=== PATIENT | female | born 1960 | race Caucasian/White ===

== ENCOUNTER 2019-04-18 16:40 | Observation (INO) | payer OTHER ==
[2019-04-18] MEDS ORDERED: Sodium Chloride 0.9% 1,000 ML IV ONE (17:25)
--- NOTE | 2019-04-18 17:29 | EDM.PDOC ---
ED HPI GENERAL MEDICAL PROBLEM - General Chief Complaint: General Stated Complaint: Abdominal Pain Time Seen by Provider: 04/18/19 17:04 Source of Information: Reports: Patient History Limitations: Reports: No Limitations - History of Present Illness INITIAL COMMENTS - FREE TEXT/NARRATIVE: HISTORY AND PHYSICAL: History of present illness: Patient is a 58-year-old female who presents to the emergency room with complaints of right lower quadrant pain that radiates into her mid back. She states this discomfort started last evening but has progressively gotten worse. This morning she has noticed subjective fever, headache and generalized body aches. Patient denies any injury/trauma, change in vision, syncope or near syncope. Denies any chest pain, back pain, shortness of breath or cough. Denies any nausea, vomiting, diarrhea, constipation or dysuria. Has not noted any blood in urine or stool. Patient has been eating and drinking appropriately. Review of systems: As per history of present illness and below otherwise all systems reviewed and negative. Past medical history: As per history of present illness and as reviewed below otherwise noncontributory. Surgical history: As per history of present illness and as reviewed below otherwise noncontributory. Social history: See social history for further information Family history: As per history of present illness and as reviewed below otherwise noncontributory. Physical exam: General: Well-developed and well-nourished 58-year-old female. Alert and oriented. Nontoxic-appearing and in no acute distress. HEENT: Atraumatic, normocephalic, pupils equal and reactive bilaterally, negative for conjunctival pallor or scleral icterus, mucous membranes moist, TMs normal bilaterally, throat clear, neck supple, nontender, trachea midline. No drooling or trismus noted. No meningeal signs. No hot potato voice noted. Lungs: Clear to auscultation, breath sounds equal bilaterally, chest nontender. Heart: S1S2, regular rate and rhythm without overt murmur Abdomen: Soft, nondistended, right lower quadrant tenderness with rebound tenderness. Negative for masses or hepatosplenomegaly. Negative for costovertebral tenderness. Pelvis: Stable nontender. Skin: Intact, warm, dry. No lesions or rashes noted. Extremities: Atraumatic, moves all extremities per self without difficulty or deficits, negative for cords or calf pain. Neurovascular unremarkable. Neuro: Awake, alert, oriented. Cranial nerves II through XII unremarkable. Cerebellum unremarkable. Motor and sensory unremarkable throughout. Exam nonfocal. Notes: Patient does have a white count of 12.2, CT shows thickening of the mid sigmoid colon with extensive adjacent pericolonic fat stranding consistent with diverticulitis and an 11 mm colonic wall abscess. Initially the radiologist did not comment on the appendix I did call the radiologist, who states there is no noted appendicitis on imaging. Dr. Mathew, general surgeon on-call, who states this is not large enough to drain at this time and would like this patient admitted to medical. Request that Zosyn be hung. Dr. Stratton was consulted and agreeable. Patient was made aware of findings and is agreeable to plan of care. Diagnostics: CBC, CMP, UA, CT abdomen/pelvis, lipase, influenza Therapeutics: IV fluid, Toradol, Zosyn Impression: Diverticulitis with colonic wall abscess Plan: Observation admission to med/surg Definitive disposition and diagnosis as appropriate pending reevaluation and review of above. 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 Neurological History: Reports: None - Infectious Disease History Infectious Disease History: Reports: Chicken Pox - Past Surgical History Female Surgical History: Reports: Hysterectomy, Salpingo-Oophorectomy, Other (See Below) Other Female Surgeries/Procedures: ectopic years ago Social & Family History - Family History Family Medical History: Noncontributory - Tobacco Use Smoking Status *Q: Former Smoker Years of Tobacco use: 10 Used Tobacco, but Quit: Yes Month/Year Tobacco Last Used: 2004 Second Hand Smoke Exposure: No - Caffeine Use Caffeine Use: Reports: Coffee - Recreational Drug Use Recreational Drug Use: No ED ROS GENERAL - Review of Systems Review Of Systems: Comprehensive ROS is negative, except as noted in HPI. ED EXAM, GENERAL - Physical Exam Exam: See Below (See dictation) Course - Vital Signs Last Recorded V/S: Last Vital Signs Temp 100.2 F 04/18/19 17:12 Pulse 99 04/18/19 17:12 Resp 20 04/18/19 17:12 BP 116/64 04/18/19 17:12 Pulse Ox 95 04/18/19 17:12 - Orders/Labs/Meds Orders: Active Orders 24 hr Category Date Time Status Admission Status [Patient Status] [ADT] Stat ADT 04/18/19 20:05 Ordered Piperacillin/Tazobactam [Piperacil-Tazobact] 3.375 gm Med 04/18/19 20:15 Ordered Sodium Chloride 0.9% [Normal Saline] 50 ml IV Q6H Medication Orders Piperacillin Sod/Tazobactam (Sod 3.375 gm/ Sodium Chloride) 50 mls @ 100 mls/ hr IV Q6H PEEWEE Labs: Laboratory Tests 04/18/19 04/18/19 04/18/19 Range/Units 18:00 18:00 18:00 WBC 12.22 H (4.0-11.0) K/uL RBC 4.85 (4.30-5.90) M/uL Hgb 15.4 (12.0-16.0) g/dL Hct 44.2 (36.0-46.0) % MCV 91.1 (80.0-98.0) fL MCH 31.8 (27.0-32.0) pg MCHC 34.8 (31.0-37.0) g/dL RDW Std Deviation 44.6 (28.0-62.0) fl RDW Coeff of Herbert 14 (11.0-15.0) % Plt Count 296 (150-400) K/uL MPV 10.50 (7.40-12.00) fL Neut % (Auto) 77.1 (48.0-80.0) % Lymph % (Auto) 12.8 L (16.0-40.0) % [place] % (Auto) 9.2 (0.0-15.0) % Eos % (Auto) 0.7 (0.0-7.0) % Baso % (Auto) 0.2 (0.0-1.5) % Neut # (Auto) 9.4 H (1.4-5.7) K/uL Lymph # (Auto) 1.6 (0.6-2.4) K/uL [place] # (Auto) 1.1 H (0.0-0.8) K/uL Eos # (Auto) 0.1 (0.0-0.7) K/uL Baso # (Auto) 0.0 (0.0-0.1) K/uL Nucleated RBC % 0.0 /100WBC Nucleated RBCs # 0 K/uL Sodium 140 (136-145) mmol/L Potassium 4.2 (3.5-5.1) mmol/L Chloride 101 (98-107) mmol/L Carbon Dioxide 27.2 (21.0-32.0) mmol/L BUN 12 (7.0-18.0) mg/dL Creatinine 0.7 (0.6-1.0) mg/dL Est Cr Clr Drug Dosing 74.23 mL/min Estimated GFR (MDRD) > 60.0 ml/min Glucose 97 (74-106) mg/dL Calcium 9.2 (8.5-10.1) mg/dL Total Bilirubin 0.7 (0.2-1.0) mg/dL AST 41 H (15-37) IU/L ALT 42 (14-63) IU/L Alkaline Phosphatase 133 H (46-116) U/L Total Protein 8.2 (6.4-8.2) g/dL Albumin 4.0 (3.4-5.0) g/dL Globulin 4.2 H (2.6-4.0) g/dL Albumin/Globulin Ratio 1.0 (0.9-1.6) Lipase 77 (73-393) U/L Urine Color YELLOW Urine Appearance CLEAR Urine pH 8.5 H (5.0-8.0) Ur Specific [place] 1.020 (1.001-1.035) Urine Protein NEGATIVE (NEGATIVE) mg/dL Urine Glucose (UA) NEGATIVE (NEGATIVE) mg/dL Urine Ketones NEGATIVE (NEGATIVE) mg/dL Urine Occult Blood NEGATIVE (NEGATIVE) Urine Nitrite NEGATIVE (NEGATIVE) Urine Bilirubin NEGATIVE (NEGATIVE) Urine Urobilinogen 0.2 (<2.0) EU/dL Ur Leukocyte Esterase NEGATIVE (NEGATIVE) Meds: Medications Generic Name Dose Route Start Last Admin Trade Name Freq PRN Reason Stop Dose Admin Piperacillin Sod/Tazobactam 50 mls @ 100 mls/hr 04/18/19 20:15 Sod 3.375 gm/ Sodium Chloride IV Q6H PEEWEE Discontinued Medications Generic Name Dose Route Start Last Admin Trade Name Kevin PRN Reason Stop Dose Admin Sodium Chloride 1,000 mls @ 999 mls/hr 04/18/19 17:25 04/18/19 17:56 Normal Saline IV 04/18/19 18:25 999 mls/hr STAT ONE Administration Piperacillin Sod/Tazobactam 100 mls @ 100 mls/hr 04/18/19 19:43 Sod 4.5 gm/ Sodium Chloride IV 04/18/19 20:42 ONETIME ONE Iopamidol 100 ml 04/18/19 18:51 04/18/19 18:52 Isovue Multipack-370 (76%) IVPUSH 04/18/19 18:52 100 ml ONETIME ONE Administration Ketorolac Tromethamine 30 mg 04/18/19 17:30 04/18/19 17:58 Toradol IVPUSH 04/18/19 17:31 30 mg ONETIME ONE Administration Morphine Sulfate 2 mg 04/18/19 19:43 Morphine IVPUSH 04/18/19 19:44 ONETIME ONE Departure - Departure Time of Disposition: 20:06 Disposition: Refer to Observation Clinical Impression: Abscess of sigmoid colon due to diverticulitis - Discharge Information Referrals: Cristobal Becerril MD [Primary Care Provider] - Forms: ED Department Discharge Sepsis Event Note - Evaluation Sepsis Screening Result: No Definite Risk - Focused Exam Vital Signs: Vital Signs Temp Pulse Resp BP Pulse Ox 04/18/19 17:12 100.2 F 99 20 116/64 95 Date Exam was Performed: 04/18/19 Time Exam was Performed: 20:06 - My Orders Last 24 Hours: My Active Orders 04/18/19 20:05 Admission Status [Patient Status] [ADT] Stat 04/18/19 20:15 Piperacillin/Tazobactam [Piperacil-Tazobact] 3.375 gm Sodium Chloride 0.9% [ Normal Saline] 50 ml IV Q6H - Assessment/Plan Last 24 Hours: My Active Orders 04/18/19 20:05 Admission Status [Patient Status] [ADT] Stat 04/18/19 20:15 Piperacillin/Tazobactam [Piperacil-Tazobact] 3.375 gm Sodium Chloride 0.9% [ Normal Saline] 50 ml IV Q6H
[2019-04-18] MEDS ORDERED: Ketorolac 30 MG/ML SDV IVPUSH ONE (17:30)
[2019-04-18 18:31] LABS: BLOOD UREA NITROGEN,BUN 12 mg/dL (7.0-18.0); CARBON DIOXIDE,CO2 27.2 mmol/L (21.0-32.0); CHLORIDE,CL 101 mmol/L (98-107); GLUCOSE RANDOM 97 mg/dL (74-106); LIPASE 77 U/L (73-393); POTASSIUM,K 4.2 mmol/L (3.5-5.1); SODIUM,NA 140 mmol/L (136-145)
[2019-04-18] MEDS ORDERED: Iopamidol 755 MG/ML 200 ML Multipack Bottle IVPUSH ONE (18:51)
--- NOTE | 2019-04-18 19:24 | CT ---
INDICATION: Right lower quadrant pain TECHNIQUE: CT abdomen and pelvis acquired with IV contrast. 100 cc Isovue COMPARISON: None FINDINGS: Lower chest: Unremarkable. Liver: Hepatic steatosis. Spleen: Unremarkable. Pancreas: Unremarkable. Gallbladder and bile ducts: Unremarkable. Kidneys: Unremarkable. Adrenal glands: Unremarkable. GI tract: Thickening of the mid sigmoid colon with extensive adjacent pericolonic fat stranding consistent with diverticulitis. 11 millimeter colonic wall abscess. Vascular structures: Unremarkable. Lymph nodes: Unremarkable. Miscellaneous: Unremarkable. No free air or significant free fluid. Pelvic Organs: Unremarkable. Bones: Unremarkable for age. IMPRESSION: Thickening of the mid sigmoid colon with extensive adjacent pericolic fat stranding consistent with diverticulitis and a 11 millimeter colonic wall abscess. Hepatic steatosis. Dictated by Dominic Gracia MD @ 04/18/2019 7:22:27 PM Please note that all CT scans at this facility use dose modulation, iterative reconstruction, and/or weight-based dosing when appropriate to reduce radiation dose to as low as reasonably achievable. Dictated by: Dominic Gracia MD @ 04/18/2019 19:22:35 (Electronically Signed)
[2019-04-18] MEDS ORDERED: Morphine 2 MG/ML Syringe IVPUSH ONE (19:43)
[2019-04-18] MEDS ORDERED: Piperacillin/Tazobactam 4.5 GM in Sodium Chloride 0.9% 100 ML IV ONE (19:43)
--- NOTE | 2019-04-18 20:14 | PCM.CONS ---
H&P History of Present Illness - General Date of Service: 04/18/19 Admit Problem/Dx: Admission Diagnosis/Problem Admission Diagnosis/Problem Diverticulitis Source of Information: Patient History Limitations: Reports: No Limitations - History of Present Illness Initial Comments - Free Text/Narative: Patient is a 58 year old female who presents with RLQ abdominal pain. It started yesterday. She was unable to sleep last night due to that. Today the pain got worse. She has not passed gas or had a BM since yesterday. She states that she feels like she needs to have a BM but cannot. She felt subjective fevers at home. She denies chills. She denies nausea or vomiting . Her vitals were stable on arrival. Her WBC was elevated at 12K. Her CT abdomen pelvis shows distal sigmoid colon diverticulitis with a small colonic wall abscess associated with thickened colonic wall. 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 Neurological History: Reports: None - Infectious Disease History Infectious Disease History: Reports: Chicken Pox - Past Surgical History Female Surgical History: Reports: Hysterectomy, Salpingo-Oophorectomy, Other (See Below) Other Female Surgeries/Procedures: ectopic years ago Social & Family History - Family History Family Medical History: Noncontributory - Tobacco Use Smoking Status *Q: Former Smoker Years of Tobacco use: 10 Used Tobacco, but Quit: Yes Month/Year Tobacco Last Used: 2004 Second Hand Smoke Exposure: No - Caffeine Use Caffeine Use: Reports: Coffee - Recreational Drug Use Recreational Drug Use: No H&P Review of Systems - Review of Systems: Review Of Systems: Comprehensive ROS is negative, except as noted in HPI. Exam - Exam Exam: See Below - Vital Signs Vital Signs: Last Vital Signs Temp 37.9 C 04/18/19 17:12 Pulse 99 04/18/19 17:12 Resp 20 12/27/19 17:12 BP 116/64 04/18/19 17:12 Pulse Ox 95 04/18/19 17:12 Weight: 81.7 kg - Exam Quality Assessment: Supplemental Oxygen General: Alert, Oriented HEENT: Conjunctiva Clear, Mucosa Moist & [place], Posterior Pharynx Clear Lungs: Clear to Auscultation, Normal Respiratory Effort Cardiovascular: Regular Rate, Regular Rhythm GI/Abdominal Exam: Soft, No Distention, Tender (Suprapubic area and LLQ). No: Guarding, Rigid, Rebound - Patient Data Lab Results Last 24 hrs: Laboratory Results - last 24 hr 04/18/19 04/18/19 04/18/19 Range/Units 18:00 18:00 18:00 WBC 12.22 H (4.0-11.0) K/uL RBC 4.85 (4.30-5.90) M/uL Hgb 15.4 (12.0-16.0) g/dL Hct 44.2 (36.0-46.0) % MCV 91.1 (80.0-98.0) fL MCH 31.8 (27.0-32.0) pg MCHC 34.8 (31.0-37.0) g/dL RDW Std Deviation 44.6 (28.0-62.0) fl RDW Coeff of Herbert 14 (11.0-15.0) % Plt Count 296 (150-400) K/uL MPV 10.50 (7.40-12.00) fL Neut % (Auto) 77.1 (48.0-80.0) % Lymph % (Auto) 12.8 L (16.0-40.0) % [place] % (Auto) 9.2 (0.0-15.0) % Eos % (Auto) 0.7 (0.0-7.0) % Baso % (Auto) 0.2 (0.0-1.5) % Neut # (Auto) 9.4 H (1.4-5.7) K/uL Lymph # (Auto) 1.6 (0.6-2.4) K/uL [place] # (Auto) 1.1 H (0.0-0.8) K/uL Eos # (Auto) 0.1 (0.0-0.7) K/uL Baso # (Auto) 0.0 (0.0-0.1) K/uL Nucleated RBC % 0.0 /100WBC Nucleated RBCs # 0 K/uL Sodium 140 (136-145) mmol/L Potassium 4.2 (3.5-5.1) mmol/L Chloride 101 (98-107) mmol/L Carbon Dioxide 27.2 (21.0-32.0) mmol/L BUN 12 (7.0-18.0) mg/dL Creatinine 0.7 (0.6-1.0) mg/dL Est Cr Clr Drug Dosing 74.23 mL/min Estimated GFR (MDRD) > 60.0 ml/min Glucose 97 (74-106) mg/dL Calcium 9.2 (8.5-10.1) mg/dL Total Bilirubin 0.7 (0.2-1.0) mg/dL AST 41 H (15-37) IU/L ALT 42 (14-63) IU/L Alkaline Phosphatase 133 H (46-116) U/L Total Protein 8.2 (6.4-8.2) g/dL Albumin 4.0 (3.4-5.0) g/dL Globulin 4.2 H (2.6-4.0) g/dL Albumin/Globulin Ratio 1.0 (0.9-1.6) Lipase 77 (73-393) U/L Urine Color YELLOW Urine Appearance CLEAR Urine pH 8.5 H (5.0-8.0) Ur Specific [place] 1.020 (1.001-1.035) Urine Protein NEGATIVE (NEGATIVE) mg/dL Urine Glucose (UA) NEGATIVE (NEGATIVE) mg/dL Urine Ketones NEGATIVE (NEGATIVE) mg/dL Urine Occult Blood NEGATIVE (NEGATIVE) Urine Nitrite NEGATIVE (NEGATIVE) Urine Bilirubin NEGATIVE (NEGATIVE) Urine Urobilinogen 0.2 (<2.0) EU/dL Ur Leukocyte Esterase NEGATIVE (NEGATIVE) Result Diagrams: 04/18/19 18:00 04/18/19 18:00 Rowdy Results Last 24 hrs: Microbiology 04/18/19 17:29 Influenza Type A Antigen Screen - Final Nasopharyngeal Swab NEGATIVE INFLUENZA A VIRUS AG REFERENCE RANGE: NEGATIVE Influenza Type B Antigen Screen - Final NEGATIVE INFLUENZA B VIRUS AG REFERENCE RANGE: NEGATIVE Sepsis Event Note - Evaluation Sepsis Screening Result: No Definite Risk - Focused Exam Vital Signs: Vital Signs Temp Pulse Resp BP Pulse Ox 04/18/19 17:12 37.9 C 99 20 116/64 95 Date Exam was Performed: 04/18/19 Time Exam was Performed: 20:07 Consult PN Assessment/Plan Procedures: Procedures ASSAY GLUCOSE BLOOD QUANT (02/20/14) COMP SCREEN MAMMOGRAM ADD-ON (03/05/15) LIPID PANEL (02/20/14) ROUTINE VENIPUNCTURE (02/20/14) SCR MAMMO BI INCL CAD (07/13/17) (1) Abscess of sigmoid colon due to diverticulitis SNOMED Code(s): 5683493544147794 Code(s): K57.20 - DVTRCLI OF LG INT W PERFORATION AND ABSCESS W/O BLEEDING Current Visit: Yes Problem List Initiated/Reviewed/Updated: Yes Plan: The patient's abdomen is fairly benign. She has only localized tenderness in her pelvic area. Her abscess is too small to drain by radiology. She can be treated with IV antibiotics, fluid resuscitation, and NPO status overnight. Will reassess patient in am. Appreciate medicine's assistance in caring for this patient.
[2019-04-18] MEDS: Piperacillin/Tazobactam 3.375 GM in Sodium Chloride 0.9% 50 ML IV SCH (21:12)
[2019-04-18] MEDS ORDERED: Morphine 10 MG/ML Syringe IVPUSH PRN (23:41)
[2019-04-18] MEDS ORDERED: Ondansetron 4 MG/2 ML SDV IVPUSH PRN (23:41)
--- NOTE | 2019-04-18 23:45 | PCM.HP.2 ---
H&P History of Present Illness - General Date of Service: 04/19/19 Admit Problem/Dx: Admission Diagnosis/Problem Admission Diagnosis/Problem Diverticulitis - History of Present Illness Initial Comments - Free Text/Narative: 58 yo female who presents with two day history of right to mid lower abdominal pain. PAtient denies any fevers, diarrhea, or blood in her stool. CT scan in the ED showed diverticulitis with 11 mm colonic wall abscess. 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 Neurological History: Reports: None - Infectious Disease History Infectious Disease History: Reports: Chicken Pox - Past Surgical History Female Surgical History: Reports: Hysterectomy, Salpingo-Oophorectomy, Other (See Below) Other Female Surgeries/Procedures: ectopic years ago Social & Family History - Family History Family Medical History: Noncontributory - Tobacco Use Smoking Status *Q: Former Smoker Years of Tobacco use: 30 Used Tobacco, but Quit: Yes Month/Year Tobacco Last Used: 14 years ago Second Hand Smoke Exposure: No - Caffeine Use Caffeine Use: Reports: Coffee - Recreational Drug Use Recreational Drug Use: No H&P Review of Systems - Review of Systems: Review Of Systems: Comprehensive ROS is negative, except as noted in HPI. Exam - Exam Exam: See Below - Vital Signs Vital Signs: Last Vital Signs Temp 37.9 C 04/18/19 17:12 Pulse 99 04/18/19 17:12 Resp 20 04/18/19 17:12 BP 116/64 04/18/19 17:12 Pulse Ox 95 04/18/19 17:12 Weight: 83.007 kg - Exam General: Alert, Oriented HEENT: Posterior Pharynx Clear Neck: Supple, Trachea Midline Lungs: Clear to Auscultation, Normal Respiratory Effort Cardiovascular: Regular Rate, Regular Rhythm GI/Abdominal Exam: Normal Bowel Sounds, Soft, Non-Tender, No Organomegaly, No Distention, No Mass Extremities: Non-Tender, No Pedal Edema Skin: Warm, Dry, Intact - Patient Data Lab Results Last 24 hrs: Laboratory Results - last 24 hr 04/18/19 04/18/19 04/18/19 Range/Units 18:00 18:00 18:00 WBC 12.22 H (4.0-11.0) K/uL RBC 4.85 (4.30-5.90) M/uL Hgb 15.4 (12.0-16.0) g/dL Hct 44.2 (36.0-46.0) % MCV 91.1 (80.0-98.0) fL MCH 31.8 (27.0-32.0) pg MCHC 34.8 (31.0-37.0) g/dL RDW Std Deviation 44.6 (28.0-62.0) fl RDW Coeff of Herbert 14 (11.0-15.0) % Plt Count 296 (150-400) K/uL MPV 10.50 (7.40-12.00) fL Neut % (Auto) 77.1 (48.0-80.0) % Lymph % (Auto) 12.8 L (16.0-40.0) % [place] % (Auto) 9.2 (0.0-15.0) % Eos % (Auto) 0.7 (0.0-7.0) % Baso % (Auto) 0.2 (0.0-1.5) % Neut # (Auto) 9.4 H (1.4-5.7) K/uL Lymph # (Auto) 1.6 (0.6-2.4) K/uL [place] # (Auto) 1.1 H (0.0-0.8) K/uL Eos # (Auto) 0.1 (0.0-0.7) K/uL Baso # (Auto) 0.0 (0.0-0.1) K/uL Nucleated RBC % 0.0 /100WBC Nucleated RBCs # 0 K/uL Sodium 140 (136-145) mmol/L Potassium 4.2 (3.5-5.1) mmol/L Chloride 101 (98-107) mmol/L Carbon Dioxide 27.2 (21.0-32.0) mmol/L BUN 12 (7.0-18.0) mg/dL Creatinine 0.7 (0.6-1.0) mg/dL Est Cr Clr Drug Dosing 74.23 mL/min Estimated GFR (MDRD) > 60.0 ml/min Glucose 97 (74-106) mg/dL Calcium 9.2 (8.5-10.1) mg/dL Total Bilirubin 0.7 (0.2-1.0) mg/dL AST 41 H (15-37) IU/L ALT 42 (14-63) IU/L Alkaline Phosphatase 133 H (46-116) U/L Total Protein 8.2 (6.4-8.2) g/dL Albumin 4.0 (3.4-5.0) g/dL Globulin 4.2 H (2.6-4.0) g/dL Albumin/Globulin Ratio 1.0 (0.9-1.6) Lipase 77 (73-393) U/L Urine Color YELLOW Urine Appearance CLEAR Urine pH 8.5 H (5.0-8.0) Ur Specific [place] 1.020 (1.001-1.035) Urine Protein NEGATIVE (NEGATIVE) mg/dL Urine Glucose (UA) NEGATIVE (NEGATIVE) mg/dL Urine Ketones NEGATIVE (NEGATIVE) mg/dL Urine Occult Blood NEGATIVE (NEGATIVE) Urine Nitrite NEGATIVE (NEGATIVE) Urine Bilirubin NEGATIVE (NEGATIVE) Urine Urobilinogen 0.2 (<2.0) EU/dL Ur Leukocyte Esterase NEGATIVE (NEGATIVE) Result Diagrams: 04/19/19 05:55 04/19/19 05:55 Rowdy Results Last 24 hrs: Microbiology 04/18/19 17:29 Influenza Type A Antigen Screen - Final Nasopharyngeal Swab NEGATIVE INFLUENZA A VIRUS AG REFERENCE RANGE: NEGATIVE Influenza Type B Antigen Screen - Final NEGATIVE INFLUENZA B VIRUS AG REFERENCE RANGE: NEGATIVE Sepsis Event Note - Evaluation Sepsis Screening Result: No Definite Risk - Focused Exam Vital Signs: Vital Signs Temp Pulse Resp BP Pulse Ox 04/18/19 17:12 37.9 C 99 20 116/64 95 Date Exam was Performed: 04/19/19 Time Exam was Performed: 11:42 Problem List Initiated/Reviewed/Updated: Yes Orders Last 24hrs: Active Orders 24 hr Category Date Time Status Admission Status [Patient Status] [ADT] Stat ADT 04/18/19 20:05 Active Antiembolic Devices [RC] PER UNIT ROUTINE Care 04/18/19 23:42 Ordered Oxygen Therapy [RC] PRN Care 04/18/19 23:41 Ordered Up ad [place] [RC] ASDIRECTED Care 04/18/19 23:41 Ordered VTE/DVT Education [RC] PER UNIT ROUTINE Care 04/18/19 23:41 Ordered Vital Signs [RC] Q4H Care 04/18/19 23:41 Ordered Nothing per Oral Now Diet [DIET] Diet 04/18/19 Breakfast Ordered BASIC METABOLIC PANEL,BMP [CHEM] AM Lab 04/19/19 05:11 Ordered CBC WITH AUTO DIFF [HEME] AM Lab 04/19/19 05:11 Ordered Morphine Med 04/18/19 23:41 Ordered 2 mg IVPUSH Q4H PRN Ondansetron [Zofran] Med 04/18/19 23:41 Ordered 4 mg IVPUSH Q4H PRN Piperacillin/Tazobactam [Piperacil-Tazobact] 3.375 gm Med 04/18/19 20:15 Active Sodium Chloride 0.9% [Normal Saline] 50 ml IV Q6H Sodium Chloride 0.9% @ 125 MLS/HR (1,000ml) Med 04/18/19 23:45 Ordered Sodium Chloride 0.9% [Normal Saline] 1,000 ml IV ASDIRECTED Sequential Compression Device [OM.PC] Per Unit Routine Oth 04/18/19 23:42 Ordered Resuscitation Status Routine Resus Stat 04/18/19 23:41 Ordered Medication Orders Piperacillin Sod/Tazobactam (Sod 3.375 gm/ Sodium Chloride) 50 mls @ 100 mls/ hr IV Q6H PEEWEE Last Admin: 04/18/19 21:12 Dose: Sodium Chloride (Normal Saline) 1,000 mls @ 125 mls/hr IV ASDIRECTED [facility] Assessment/Plan Comment:: 58 yo female admitted with diverticulitis with small colonic wall abscess. We will treat with bowel rest, IV fluids and Zosyn.
[2019-04-19] MEDS: Sodium Chloride 0.9% 1,000 ML IV SCH ×3 (00:11→17:31)
[2019-04-19] MEDS: Piperacillin/Tazobactam 3.375 GM in Sodium Chloride 0.9% 50 ML IV SCH ×4 (02:49→20:15)
[2019-04-19 07:05] LABS: BLOOD UREA NITROGEN,BUN 18 mg/dL (7.0-18.0); CARBON DIOXIDE,CO2 26.8 mmol/L (21.0-32.0); CHLORIDE,CL 106 mmol/L (98-107); GLUCOSE RANDOM 93 mg/dL (74-106); POTASSIUM,K 3.8 mmol/L (3.5-5.1); SODIUM,NA 140 mmol/L (136-145)
--- NOTE | 2019-04-19 09:16 | PCM.CONSN ---
- General Info Date of Service: 04/19/19 Functional Status: Reports: Other (Patients abdominal pain is slightly better this morning. Afebrile. VSS overnight. BP a little soft while asleep but MAPs were >65. ) - Review of Systems General: Reports: No Symptoms HEENT: Reports: No Symptoms Pulmonary: Reports: No Symptoms Cardiovascular: Reports: No Symptoms Gastrointestinal: Reports: No Symptoms Genitourinary: Reports: No Symptoms - Patient Data Vitals - Most Recent: Last Vital Signs Temp 36.8 C 04/19/19 07:51 Pulse 55 L 04/19/19 07:51 Resp 14 04/19/19 07:51 BP 86/43 L 04/19/19 07:51 Pulse Ox 93 L 04/19/19 07:51 Weight - Most Recent: 83.007 kg I&O - Last 24 Hours: Intake & Output 04/18/19 04/19/19 04/19/19 22:59 06:59 14:59 Intake Total 594 Output Total 200 Balance 394 Lab Results Last 24 Hours: Laboratory Results - last 24 hr 04/18/19 04/18/19 04/18/19 Range/Units 18:00 18:00 18:00 WBC 12.22 H (4.0-11.0) K/uL RBC 4.85 (4.30-5.90) M/uL Hgb 15.4 (12.0-16.0) g/dL Hct 44.2 (36.0-46.0) % MCV 91.1 (80.0-98.0) fL MCH 31.8 (27.0-32.0) pg MCHC 34.8 (31.0-37.0) g/dL RDW Std Deviation 44.6 (28.0-62.0) fl RDW Coeff of Herbert 14 (11.0-15.0) % Plt Count 296 (150-400) K/uL MPV 10.50 (7.40-12.00) fL Neut % (Auto) 77.1 (48.0-80.0) % Lymph % (Auto) 12.8 L (16.0-40.0) % [place] % (Auto) 9.2 (0.0-15.0) % Eos % (Auto) 0.7 (0.0-7.0) % Baso % (Auto) 0.2 (0.0-1.5) % Neut # (Auto) 9.4 H (1.4-5.7) K/uL Lymph # (Auto) 1.6 (0.6-2.4) K/uL [place] # (Auto) 1.1 H (0.0-0.8) K/uL Eos # (Auto) 0.1 (0.0-0.7) K/uL Baso # (Auto) 0.0 (0.0-0.1) K/uL Nucleated RBC % 0.0 /100WBC Nucleated RBCs # 0 K/uL Sodium 140 (136-145) mmol/L Potassium 4.2 (3.5-5.1) mmol/L Chloride 101 (98-107) mmol/L Carbon Dioxide 27.2 (21.0-32.0) mmol/L BUN 12 (7.0-18.0) mg/dL Creatinine 0.7 (0.6-1.0) mg/dL Est Cr Clr Drug Dosing 74.23 mL/min Estimated GFR (MDRD) > 60.0 ml/min Glucose 97 (74-106) mg/dL Calcium 9.2 (8.5-10.1) mg/dL Total Bilirubin 0.7 (0.2-1.0) mg/dL AST 41 H (15-37) IU/L ALT 42 (14-63) IU/L Alkaline Phosphatase 133 H (46-116) U/L Total Protein 8.2 (6.4-8.2) g/dL Albumin 4.0 (3.4-5.0) g/dL Globulin 4.2 H (2.6-4.0) g/dL Albumin/Globulin Ratio 1.0 (0.9-1.6) Lipase 77 (73-393) U/L Urine Color YELLOW Urine Appearance CLEAR Urine pH 8.5 H (5.0-8.0) Ur Specific [place] 1.020 (1.001-1.035) Urine Protein NEGATIVE (NEGATIVE) mg/dL Urine Glucose (UA) NEGATIVE (NEGATIVE) mg/dL Urine Ketones NEGATIVE (NEGATIVE) mg/dL Urine Occult Blood NEGATIVE (NEGATIVE) Urine Nitrite NEGATIVE (NEGATIVE) Urine Bilirubin NEGATIVE (NEGATIVE) Urine Urobilinogen 0.2 (<2.0) EU/dL Ur Leukocyte Esterase NEGATIVE (NEGATIVE) 12/28/19 12/28/19 Range/Units 05:55 05:55 WBC 10.04 (4.0-11.0) K/uL RBC 4.07 L (4.30-5.90) M/uL Hgb 12.7 (12.0-16.0) g/dL Hct 37.8 (36.0-46.0) % MCV 92.9 (80.0-98.0) fL MCH 31.2 (27.0-32.0) pg MCHC 33.6 (31.0-37.0) g/dL RDW Std Deviation 46.2 (28.0-62.0) fl RDW Coeff of Herbert 14 (11.0-15.0) % Plt Count 251 (150-400) K/uL MPV 10.80 (7.40-12.00) fL Neut % (Auto) 67.6 (48.0-80.0) % Lymph % (Auto) 19.7 (16.0-40.0) % [place] % (Auto) 11.3 (0.0-15.0) % Eos % (Auto) 1.1 (0.0-7.0) % Baso % (Auto) 0.3 (0.0-1.5) % Neut # (Auto) 6.8 H (1.4-5.7) K/uL Lymph # (Auto) 2.0 (0.6-2.4) K/uL [place] # (Auto) 1.1 H (0.0-0.8) K/uL Eos # (Auto) 0.1 (0.0-0.7) K/uL Baso # (Auto) 0.0 (0.0-0.1) K/uL Nucleated RBC % 0.0 /100WBC Nucleated RBCs # 0 K/uL Sodium 140 (136-145) mmol/L Potassium 3.8 (3.5-5.1) mmol/L Chloride 106 (98-107) mmol/L Carbon Dioxide 26.8 (21.0-32.0) mmol/L BUN 18 (7.0-18.0) mg/dL Creatinine 0.7 (0.6-1.0) mg/dL Est Cr Clr Drug Dosing 74.23 mL/min Estimated GFR (MDRD) > 60.0 ml/min Glucose 93 (74-106) mg/dL Calcium 8.1 L (8.5-10.1) mg/dL Total Bilirubin (0.2-1.0) mg/dL AST (15-37) IU/L ALT (14-63) IU/L Alkaline Phosphatase (46-116) U/L Total Protein (6.4-8.2) g/dL Albumin (3.4-5.0) g/dL Globulin (2.6-4.0) g/dL Albumin/Globulin Ratio (0.9-1.6) Lipase (73-393) U/L Urine Color Urine Appearance Urine pH (5.0-8.0) Ur Specific [place] (1.001-1.035) Urine Protein (NEGATIVE) mg/dL Urine Glucose (UA) (NEGATIVE) mg/dL Urine Ketones (NEGATIVE) mg/dL Urine Occult Blood (NEGATIVE) Urine Nitrite (NEGATIVE) Urine Bilirubin (NEGATIVE) Urine Urobilinogen (<2.0) EU/dL Ur Leukocyte Esterase (NEGATIVE) Rowdy Results Last 24 Hours: Microbiology 04/18/19 17:29 Influenza Type A Antigen Screen - Final Nasopharyngeal Swab NEGATIVE INFLUENZA A VIRUS AG REFERENCE RANGE: NEGATIVE Influenza Type B Antigen Screen - Final NEGATIVE INFLUENZA B VIRUS AG REFERENCE RANGE: NEGATIVE Med Orders - Current: Current Medications Piperacillin Sod/Tazobactam (Sod 3.375 gm/ Sodium Chloride) 50 mls @ 100 mls/ hr IV Q6H REPLACED BY [facility] Last Admin: 04/19/19 08:12 Dose: 100 mls/hr Sodium Chloride (Normal Saline) 1,000 mls @ 125 mls/hr IV ASDIRECTED REPLACED BY [facility] Last Admin: 04/19/19 08:13 Dose: 125 mls/hr Morphine Sulfate (Morphine) 2 mg IVPUSH Q4H PRN PRN Reason: Pain (severe 7-10) Stop: 04/19/19 23:42 Last Admin: 04/19/19 00:09 Dose: 2 mg Ondansetron HCl (Zofran) 4 mg IVPUSH Q4H PRN PRN Reason: Nausea Discontinued Medications Sodium Chloride (Normal Saline) 1,000 mls @ 999 mls/hr IV STAT ONE Stop: 04/18/19 18:25 Last Admin: 04/18/19 17:56 Dose: 999 mls/hr Piperacillin Sod/Tazobactam (Sod 4.5 gm/ Sodium Chloride) 100 mls @ 100 mls/hr IV ONETIME ONE Stop: 04/18/19 20:42 Last Admin: 04/18/19 20:09 Dose: 100 mls/hr Iopamidol (Isovue Multipack-370 (76%)) 100 ml IVPUSH ONETIME ONE Stop: 04/18/19 18:52 Last Admin: 04/18/19 18:52 Dose: 100 ml Ketorolac Tromethamine (Toradol) 30 mg IVPUSH ONETIME ONE Stop: 04/18/19 17:31 Last Admin: 04/18/19 17:58 Dose: 30 mg Morphine Sulfate (Morphine) 2 mg IVPUSH ONETIME ONE Stop: 04/18/19 19:44 Last Admin: 04/18/19 20:10 Dose: Not Given - Exam General: Alert, Oriented HEENT: Pupils Equal, Pupils Reactive Lungs: Normal Respiratory Effort Cardiovascular: Regular Rate GI/Abdominal Exam: Soft, No Distention, No Mass, Tender (suprapubic area only ) Back Exam: Normal Inspection Extremities: Normal Inspection Sepsis Event Note - Evaluation Sepsis Screening Result: No Definite Risk - Focused Exam Vital Signs: Vital Signs Temp Pulse Resp BP Pulse Ox 04/19/19 07:51 36.8 C 55 L 14 86/43 L 93 L 04/19/19 03:24 36.6 C 61 16 102/39 L 95 04/19/19 00:00 37.0 C 59 L 17 93/47 L 93 L Date Exam was Performed: 04/19/19 Time Exam was Performed: 09:10 Consult PN Assessment/Plan Procedures: Procedures ASSAY GLUCOSE BLOOD QUANT (02/20/14) COMP SCREEN MAMMOGRAM ADD-ON (03/05/15) LIPID PANEL (02/20/14) ROUTINE VENIPUNCTURE (02/20/14) SCR MAMMO BI INCL CAD (07/13/17) (1) Abscess of sigmoid colon due to diverticulitis SNOMED Code(s): 8005349148963821 Code(s): K57.20 - DVTRCLI OF LG INT W PERFORATION AND ABSCESS W/O BLEEDING Current Visit: Yes Problem List Initiated/Reviewed/Updated: Yes Plan: Patients abdomen is less tender today. She did pass some gas overnight. Would advance diet to clears but stick to that today. WBC is in normal range today. There is a lot of inflammation and a colonic wall abscess. She should continue the IV antibiotics.
--- NOTE | 2019-04-19 11:46 | PCM.PN ---
- General Info Date of Service: 04/19/19 - Review of Systems Systems Review Comment:: abdominal pain improving - Patient Data Vitals - Most Recent: Last Vital Signs Temp 36.8 C 04/19/19 07:51 Pulse 55 L 04/19/19 07:51 Resp 14 04/19/19 07:51 BP 86/43 L 04/19/19 07:51 Pulse Ox 93 L 04/19/19 07:51 Weight - Most Recent: 83.007 kg I&O - Last 24 Hours: Intake & Output 04/18/19 04/19/19 04/19/19 22:59 06:59 14:59 Intake Total 594 50 Output Total 200 Balance 394 50 Lab Results Last 24 Hours: Laboratory Results - last 24 hr 04/18/19 04/18/19 04/18/19 Range/Units 18:00 18:00 18:00 WBC 12.22 H (4.0-11.0) K/uL RBC 4.85 (4.30-5.90) M/uL Hgb 15.4 (12.0-16.0) g/dL Hct 44.2 (36.0-46.0) % MCV 91.1 (80.0-98.0) fL MCH 31.8 (27.0-32.0) pg MCHC 34.8 (31.0-37.0) g/dL RDW Std Deviation 44.6 (28.0-62.0) fl RDW Coeff of Herbert 14 (11.0-15.0) % Plt Count 296 (150-400) K/uL MPV 10.50 (7.40-12.00) fL Neut % (Auto) 77.1 (48.0-80.0) % Lymph % (Auto) 12.8 L (16.0-40.0) % [place] % (Auto) 9.2 (0.0-15.0) % Eos % (Auto) 0.7 (0.0-7.0) % Baso % (Auto) 0.2 (0.0-1.5) % Neut # (Auto) 9.4 H (1.4-5.7) K/uL Lymph # (Auto) 1.6 (0.6-2.4) K/uL [place] # (Auto) 1.1 H (0.0-0.8) K/uL Eos # (Auto) 0.1 (0.0-0.7) K/uL Baso # (Auto) 0.0 (0.0-0.1) K/uL Nucleated RBC % 0.0 /100WBC Nucleated RBCs # 0 K/uL Sodium 140 (136-145) mmol/L Potassium 4.2 (3.5-5.1) mmol/L Chloride 101 (98-107) mmol/L Carbon Dioxide 27.2 (21.0-32.0) mmol/L BUN 12 (7.0-18.0) mg/dL Creatinine 0.7 (0.6-1.0) mg/dL Est Cr Clr Drug Dosing 74.23 mL/min Estimated GFR (MDRD) > 60.0 ml/min Glucose 97 (74-106) mg/dL Calcium 9.2 (8.5-10.1) mg/dL Total Bilirubin 0.7 (0.2-1.0) mg/dL AST 41 H (15-37) IU/L ALT 42 (14-63) IU/L Alkaline Phosphatase 133 H (46-116) U/L Total Protein 8.2 (6.4-8.2) g/dL Albumin 4.0 (3.4-5.0) g/dL Globulin 4.2 H (2.6-4.0) g/dL Albumin/Globulin Ratio 1.0 (0.9-1.6) Lipase 77 (73-393) U/L Urine Color YELLOW Urine Appearance CLEAR Urine pH 8.5 H (5.0-8.0) Ur Specific [place] 1.020 (1.001-1.035) Urine Protein NEGATIVE (NEGATIVE) mg/dL Urine Glucose (UA) NEGATIVE (NEGATIVE) mg/dL Urine Ketones NEGATIVE (NEGATIVE) mg/dL Urine Occult Blood NEGATIVE (NEGATIVE) Urine Nitrite NEGATIVE (NEGATIVE) Urine Bilirubin NEGATIVE (NEGATIVE) Urine Urobilinogen 0.2 (<2.0) EU/dL Ur Leukocyte Esterase NEGATIVE (NEGATIVE) 04/19/19 04/19/19 Range/Units 05:55 05:55 WBC 10.04 (4.0-11.0) K/uL RBC 4.07 L (4.30-5.90) M/uL Hgb 12.7 (12.0-16.0) g/dL Hct 37.8 (36.0-46.0) % MCV 92.9 (80.0-98.0) fL MCH 31.2 (27.0-32.0) pg MCHC 33.6 (31.0-37.0) g/dL RDW Std Deviation 46.2 (28.0-62.0) fl RDW Coeff of Herbert 14 (11.0-15.0) % Plt Count 251 (150-400) K/uL MPV 10.80 (7.40-12.00) fL Neut % (Auto) 67.6 (48.0-80.0) % Lymph % (Auto) 19.7 (16.0-40.0) % [place] % (Auto) 11.3 (0.0-15.0) % Eos % (Auto) 1.1 (0.0-7.0) % Baso % (Auto) 0.3 (0.0-1.5) % Neut # (Auto) 6.8 H (1.4-5.7) K/uL Lymph # (Auto) 2.0 (0.6-2.4) K/uL [place] # (Auto) 1.1 H (0.0-0.8) K/uL Eos # (Auto) 0.1 (0.0-0.7) K/uL Baso # (Auto) 0.0 (0.0-0.1) K/uL Nucleated RBC % 0.0 /100WBC Nucleated RBCs # 0 K/uL Sodium 140 (136-145) mmol/L Potassium 3.8 (3.5-5.1) mmol/L Chloride 106 (98-107) mmol/L Carbon Dioxide 26.8 (21.0-32.0) mmol/L BUN 18 (7.0-18.0) mg/dL Creatinine 0.7 (0.6-1.0) mg/dL Est Cr Clr Drug Dosing 74.23 mL/min Estimated GFR (MDRD) > 60.0 ml/min Glucose 93 (74-106) mg/dL Calcium 8.1 L (8.5-10.1) mg/dL Total Bilirubin (0.2-1.0) mg/dL AST (15-37) IU/L ALT (14-63) IU/L Alkaline Phosphatase (46-116) U/L Total Protein (6.4-8.2) g/dL Albumin (3.4-5.0) g/dL Globulin (2.6-4.0) g/dL Albumin/Globulin Ratio (0.9-1.6) Lipase (73-393) U/L Urine Color Urine Appearance Urine pH (5.0-8.0) Ur Specific [place] (1.001-1.035) Urine Protein (NEGATIVE) mg/dL Urine Glucose (UA) (NEGATIVE) mg/dL Urine Ketones (NEGATIVE) mg/dL Urine Occult Blood (NEGATIVE) Urine Nitrite (NEGATIVE) Urine Bilirubin (NEGATIVE) Urine Urobilinogen (<2.0) EU/dL Ur Leukocyte Esterase (NEGATIVE) Rowdy Results Last 24 Hours: Microbiology 04/18/19 17:29 Influenza Type A Antigen Screen - Final Nasopharyngeal Swab NEGATIVE INFLUENZA A VIRUS AG REFERENCE RANGE: NEGATIVE Influenza Type B Antigen Screen - Final NEGATIVE INFLUENZA B VIRUS AG REFERENCE RANGE: NEGATIVE Med Orders - Current: Current Medications Piperacillin Sod/Tazobactam (Sod 3.375 gm/ Sodium Chloride) 50 mls @ 100 mls/ hr IV Q6H [facility] Last Admin: 04/19/19 08:12 Dose: 100 mls/hr Sodium Chloride (Normal Saline) 1,000 mls @ 125 mls/hr IV ASDIRECTED [facility] Last Admin: 04/19/19 08:13 Dose: 125 mls/hr Morphine Sulfate (Morphine) 2 mg IVPUSH Q4H PRN PRN Reason: Pain (severe 7-10) Stop: 04/19/19 23:42 Last Admin: 04/19/19 00:09 Dose: 2 mg Ondansetron HCl (Zofran) 4 mg IVPUSH Q4H PRN PRN Reason: Nausea Discontinued Medications Sodium Chloride (Normal Saline) 1,000 mls @ 999 mls/hr IV STAT ONE Stop: 04/18/19 18:25 Last Admin: 04/18/19 17:56 Dose: 999 mls/hr Piperacillin Sod/Tazobactam (Sod 4.5 gm/ Sodium Chloride) 100 mls @ 100 mls/hr IV ONETIME ONE Stop: 04/18/19 20:42 Last Admin: 04/18/19 20:09 Dose: 100 mls/hr Iopamidol (Isovue Multipack-370 (76%)) 100 ml IVPUSH ONETIME ONE Stop: 04/18/19 18:52 Last Admin: 04/18/19 18:52 Dose: 100 ml Ketorolac Tromethamine (Toradol) 30 mg IVPUSH ONETIME ONE Stop: 04/18/19 17:31 Last Admin: 04/18/19 17:58 Dose: 30 mg Morphine Sulfate (Morphine) 2 mg IVPUSH ONETIME ONE Stop: 04/18/19 19:44 Last Admin: 04/18/19 20:10 Dose: Not Given - Exam General: Alert, Oriented Neck: Supple Lungs: Clear to Auscultation, Normal Respiratory Effort Cardiovascular: Regular Rate, Regular Rhythm GI/Abdominal Exam: Soft, Non-Tender Extremities: Non-Tender, No Pedal Edema Skin: Warm, Dry, Intact Sepsis Event Note - Evaluation Sepsis Screening Result: No Definite Risk - Focused Exam Vital Signs: Vital Signs Temp Pulse Resp BP Pulse Ox 04/19/19 07:51 36.8 C 55 L 14 86/43 L 93 L 04/19/19 03:24 36.6 C 61 16 102/39 L 95 04/19/19 00:00 37.0 C 59 L 17 93/47 L 93 L Date Exam was Performed: 04/19/19 Time Exam was Performed: 11:44 - Problem List Review Problem List Initiated/Reviewed/Updated: Yes - My Orders Last 24 Hours: My Active Orders 04/18/19 23:41 Oxygen Therapy [RC] PRN Up ad Odilia [RC] ASDIRECTED VTE/DVT Education [RC] PER UNIT ROUTINE Vital Signs [RC] Q4H Morphine 2 mg IVPUSH Q4H PRN Ondansetron [Zofran] 4 mg IVPUSH Q4H PRN Resuscitation Status Routine 04/18/19 23:42 Antiembolic Devices [RC] PER UNIT ROUTINE Sequential Compression Device [OM.PC] Per Unit Routine 04/18/19 23:45 Sodium Chloride 0.9% [Normal Saline] 1,000 ml IV ASDIRECTED 04/20/19 05:11 BASIC METABOLIC PANEL,BMP [CHEM] AM CBC WITH AUTO DIFF [HEME] AM 04/21/19 05:11 BASIC METABOLIC PANEL,BMP [CHEM] AM CBC WITH AUTO DIFF [HEME] AM - Plan Plan:: 58 yo female admitted with diverticulitis with small colonic wall abscess. We will continue Zosyn and advance to clear liquid diet today.
[2019-04-19] MEDS ORDERED: Acetaminophen 325 MG Tab PO PRN (20:35)
[2019-04-20] MEDS: Piperacillin/Tazobactam 3.375 GM in Sodium Chloride 0.9% 50 ML IV SCH ×2 (01:48→08:12)
[2019-04-20] MEDS: Sodium Chloride 0.9% 1,000 ML IV SCH (01:52)
[2019-04-20 06:20] LABS: BLOOD UREA NITROGEN,BUN 10 mg/dL (7.0-18.0); CARBON DIOXIDE,CO2 24.5 mmol/L (21.0-32.0); CHLORIDE,CL 108 mmol/L (98-107); GLUCOSE RANDOM 86 mg/dL (74-106); POTASSIUM,K 3.9 mmol/L (3.5-5.1); SODIUM,NA 141 mmol/L (136-145)
--- NOTE | 2019-04-20 09:58 | PCM.CONSN ---
- General Info Date of Service: 04/20/19 Functional Status: Reports: Pain Controlled, Tolerating Diet, Ambulating, Urinating - Review of Systems General: Reports: No Symptoms HEENT: Reports: No Symptoms Pulmonary: Reports: No Symptoms Cardiovascular: Reports: No Symptoms Gastrointestinal: Reports: Flatus, Other (Had a bowel movement ) - Patient Data Vitals - Most Recent: Last Vital Signs Temp 36.6 C 04/20/19 07:41 Pulse 54 L 04/20/19 07:41 Resp 12 04/20/19 07:41 BP 135/63 04/20/19 07:41 Pulse Ox 97 04/20/19 07:41 Weight - Most Recent: 83.007 kg I&O - Last 24 Hours: Intake & Output 04/19/19 04/20/19 04/20/19 22:59 06:59 14:59 Intake Total 1816 2672 Output Total 600 1200 Balance 1216 1472 Lab Results Last 24 Hours: Laboratory Results - last 24 hr 04/20/19 04/20/19 Range/Units 05:50 05:50 WBC 6.19 (4.0-11.0) K/uL RBC 3.91 L (4.30-5.90) M/uL Hgb 12.2 (12.0-16.0) g/dL Hct 36.3 (36.0-46.0) % MCV 92.8 (80.0-98.0) fL MCH 31.2 (27.0-32.0) pg MCHC 33.6 (31.0-37.0) g/dL RDW Std Deviation 46.3 (28.0-62.0) fl RDW Coeff of Herbert 14 (11.0-15.0) % Plt Count 234 (150-400) K/uL MPV 10.90 (7.40-12.00) fL Neut % (Auto) 54.4 (48.0-80.0) % Lymph % (Auto) 31.5 (16.0-40.0) % [place] % (Auto) 9.4 (0.0-15.0) % Eos % (Auto) 4.2 (0.0-7.0) % Baso % (Auto) 0.5 (0.0-1.5) % Neut # (Auto) 3.4 (1.4-5.7) K/uL Lymph # (Auto) 2.0 (0.6-2.4) K/uL [place] # (Auto) 0.6 (0.0-0.8) K/uL Eos # (Auto) 0.3 (0.0-0.7) K/uL Baso # (Auto) 0.0 (0.0-0.1) K/uL Nucleated RBC % 0.0 /100WBC Nucleated RBCs # 0 K/uL Sodium 141 (136-145) mmol/L Potassium 3.9 (3.5-5.1) mmol/L Chloride 108 H (98-107) mmol/L Carbon Dioxide 24.5 (21.0-32.0) mmol/L BUN 10 (7.0-18.0) mg/dL Creatinine 0.6 (0.6-1.0) mg/dL Est Cr Clr Drug Dosing 86.60 mL/min Estimated GFR (MDRD) > 60.0 ml/min Glucose 86 (74-106) mg/dL Calcium 8.3 L (8.5-10.1) mg/dL Med Orders - Current: Current Medications Acetaminophen (Tylenol) 650 mg PO Q6H PRN PRN Reason: Pain Last Admin: 04/19/19 20:52 Dose: 650 mg Piperacillin Sod/Tazobactam (Sod 3.375 gm/ Sodium Chloride) 50 mls @ 100 mls/ hr IV Q6H [facility] Last Admin: 04/20/19 08:12 Dose: 100 mls/hr Sodium Chloride (Normal Saline) 1,000 mls @ 125 mls/hr IV ASDIRECTED [facility] Last Admin: 04/20/19 01:52 Dose: 125 mls/hr Ondansetron HCl (Zofran) 4 mg IVPUSH Q4H PRN PRN Reason: Nausea Discontinued Medications Sodium Chloride (Normal Saline) 1,000 mls @ 999 mls/hr IV STAT ONE Stop: 04/18/19 18:25 Last Admin: 04/18/19 17:56 Dose: 999 mls/hr Piperacillin Sod/Tazobactam (Sod 4.5 gm/ Sodium Chloride) 100 mls @ 100 mls/hr IV ONETIME ONE Stop: 04/18/19 20:42 Last Admin: 04/18/19 20:09 Dose: 100 mls/hr Iopamidol (Isovue Multipack-370 (76%)) 100 ml IVPUSH ONETIME ONE Stop: 04/18/19 18:52 Last Admin: 04/18/19 18:52 Dose: 100 ml Ketorolac Tromethamine (Toradol) 30 mg IVPUSH ONETIME ONE Stop: 04/18/19 17:31 Last Admin: 04/18/19 17:58 Dose: 30 mg Morphine Sulfate (Morphine) 2 mg IVPUSH ONETIME ONE Stop: 04/18/19 19:44 Last Admin: 04/18/19 20:10 Dose: Not Given Morphine Sulfate (Morphine) 2 mg IVPUSH Q4H PRN PRN Reason: Pain (severe 7-10) Stop: 04/19/19 23:42 Last Admin: 04/19/19 00:09 Dose: 2 mg - Exam General: Alert, Oriented, Cooperative HEENT: Pupils Equal, Pupils Reactive Lungs: Normal Respiratory Effort Cardiovascular: Regular Rate GI/Abdominal Exam: Soft, Non-Tender, No Distention, No Mass Back Exam: Normal Inspection Extremities: Normal Inspection Sepsis Event Note - Evaluation Sepsis Screening Result: No Definite Risk - Focused Exam Vital Signs: Vital Signs Temp Pulse Resp BP Pulse Ox 04/20/19 07:41 36.6 C 54 L 12 135/63 97 04/20/19 04:00 36.2 C 53 L 16 102/59 L 96 04/20/19 00:00 36.3 C 56 L 16 101/55 L 92 L Date Exam was Performed: 04/20/19 Time Exam was Performed: 09:52 Consult PN Assessment/Plan Procedures: Procedures ASSAY GLUCOSE BLOOD QUANT (02/20/14) COMP SCREEN MAMMOGRAM ADD-ON (03/05/15) LIPID PANEL (02/20/14) ROUTINE VENIPUNCTURE (02/20/14) SCR MAMMO BI INCL CAD (07/13/17) (1) Abscess of sigmoid colon due to diverticulitis SNOMED Code(s): 0494660544637621 Code(s): K57.20 - DVTRCLI OF LG INT W PERFORATION AND ABSCESS W/O BLEEDING Current Visit: Yes Problem List Initiated/Reviewed/Updated: Yes Plan: Abdominal pain is subsided. Advance diet to regular and cipro and flagyl po for antibiotics. She should be on this for a total of 2 weeks. Will see in clinic in 2 weeks.
[2019-04-20] MEDS ORDERED: Ciprofloxacin 500 MG Tab PO SCH (10:00)
[2019-04-20] MEDS ORDERED: metroNIDAZOLE 250 MG Tab PO SCH (10:00)
--- NOTE | 2019-04-20 12:48 | PCM.DCSUM1 ---
Discharge Summary - Discharge Data Discharge Date: 04/20/19 Discharge Disposition: Home, Self-Care 01 Condition: Good - Referral to Home Health Primary Care Physician: Cristobal Becerril MD - Patient Summary/Data Hospital Course: 58 yo female who presented with two day history of right to mid lower abdominal pain. She had a white count of 12,220. CT scan in the ED showed distal sigmoid diverticulitis with 11 mm colonic wall abscess. Dr. Mathew was consulted and recommended conservative therapy with IV antibiotics and bowel rest. She was treated with Zosyn. She had resolution of her abdominal pain and an oral diet was restarted which she tolerated well. She is to be discharged home to have follow up with Dr. Mathew. She was given an prescription of Ciprofloxacin and Flagyl for 12 more days. - Discharge Plan Prescriptions/Med Rec: metroNIDAZOLE 500 mg PO Q8HR #36 tablet Ciprofloxacin [Ciprofloxacin HCl] 500 mg PO BID #24 tablet Home Medications: Home Meds Omeprazole 20 mg PO DAILY 04/18/19 [History] Ciprofloxacin [Ciprofloxacin HCl] 500 mg PO BID #24 tablet 04/20/19 [Rx] metroNIDAZOLE 500 mg PO Q8HR #36 tablet 04/20/19 [Rx] Patient Handouts: Diverticulitis, [id number] Referrals: Cristobal Becerril MD [Primary Care Provider] - - Discharge Summary/Plan Comment DC Time >30 min.: No - Patient Data Vitals - Most Recent: Last Vital Signs Temp 36.6 C 04/20/19 07:41 Pulse 54 L 04/20/19 07:41 Resp 12 04/20/19 07:41 BP 135/63 04/20/19 07:41 Pulse Ox 97 04/20/19 07:41 Weight - Most Recent: 83.007 kg I&O - Last 24 hours: Intake & Output 04/19/19 04/20/19 04/20/19 22:59 06:59 14:59 Intake Total 1816 2672 848 Output Total 600 1200 Balance 1216 1472 848 Lab Results - Last 24 hrs: Laboratory Results - last 24 hr 04/20/19 04/20/19 Range/Units 05:50 05:50 WBC 6.19 (4.0-11.0) K/uL RBC 3.91 L (4.30-5.90) M/uL Hgb 12.2 (12.0-16.0) g/dL Hct 36.3 (36.0-46.0) % MCV 92.8 (80.0-98.0) fL MCH 31.2 (27.0-32.0) pg MCHC 33.6 (31.0-37.0) g/dL RDW Std Deviation 46.3 (28.0-62.0) fl RDW Coeff of Herbert 14 (11.0-15.0) % Plt Count 234 (150-400) K/uL MPV 10.90 (7.40-12.00) fL Neut % (Auto) 54.4 (48.0-80.0) % Lymph % (Auto) 31.5 (16.0-40.0) % [place] % (Auto) 9.4 (0.0-15.0) % Eos % (Auto) 4.2 (0.0-7.0) % Baso % (Auto) 0.5 (0.0-1.5) % Neut # (Auto) 3.4 (1.4-5.7) K/uL Lymph # (Auto) 2.0 (0.6-2.4) K/uL [place] # (Auto) 0.6 (0.0-0.8) K/uL Eos # (Auto) 0.3 (0.0-0.7) K/uL Baso # (Auto) 0.0 (0.0-0.1) K/uL Nucleated RBC % 0.0 /100WBC Nucleated RBCs # 0 K/uL Sodium 141 (136-145) mmol/L Potassium 3.9 (3.5-5.1) mmol/L Chloride 108 H (98-107) mmol/L Carbon Dioxide 24.5 (21.0-32.0) mmol/L BUN 10 (7.0-18.0) mg/dL Creatinine 0.6 (0.6-1.0) mg/dL Est Cr Clr Drug Dosing 86.60 mL/min Estimated GFR (MDRD) > 60.0 ml/min Glucose 86 (74-106) mg/dL Calcium 8.3 L (8.5-10.1) mg/dL Med Orders - Current: Current Medications Acetaminophen (Tylenol) 650 mg PO Q6H PRN PRN Reason: Pain Last Admin: 04/19/19 20:52 Dose: 650 mg Ciprofloxacin (Ciprofloxacin Hcl) 500 mg PO BID [facility] Last Admin: 04/20/19 10:21 Dose: 500 mg Metronidazole (Metronidazole) 250 mg PO Q6H [facility] Last Admin: 04/20/19 10:21 Dose: 250 mg Ondansetron HCl (Zofran) 4 mg IVPUSH Q4H PRN PRN Reason: Nausea Discontinued Medications Sodium Chloride (Normal Saline) 1,000 mls @ 999 mls/hr IV STAT ONE Stop: 04/18/19 18:25 Last Admin: 04/18/19 17:56 Dose: 999 mls/hr Piperacillin Sod/Tazobactam (Sod 4.5 gm/ Sodium Chloride) 100 mls @ 100 mls/hr IV ONETIME ONE Stop: 04/18/19 20:42 Last Admin: 04/18/19 20:09 Dose: 100 mls/hr Piperacillin Sod/Tazobactam (Sod 3.375 gm/ Sodium Chloride) 50 mls @ 100 mls/ hr IV Q6H [facility] Last Admin: 04/20/19 08:12 Dose: 100 mls/hr Sodium Chloride (Normal Saline) 1,000 mls @ 125 mls/hr IV ASDIRECTED [facility] Last Admin: 04/20/19 01:52 Dose: 125 mls/hr Iopamidol (Isovue Multipack-370 (76%)) 100 ml IVPUSH ONETIME ONE Stop: 04/18/19 18:52 Last Admin: 04/18/19 18:52 Dose: 100 ml Ketorolac Tromethamine (Toradol) 30 mg IVPUSH ONETIME ONE Stop: 04/18/19 17:31 Last Admin: 04/18/19 17:58 Dose: 30 mg Morphine Sulfate (Morphine) 2 mg IVPUSH ONETIME ONE Stop: 04/18/19 19:44 Last Admin: 04/18/19 20:10 Dose: Not Given Morphine Sulfate (Morphine) 2 mg IVPUSH Q4H PRN PRN Reason: Pain (severe 7-10) Stop: 04/19/19 23:42 Last Admin: 04/19/19 00:09 Dose: 2 mg
[2019-04-20] MEDS ORDERED: FLU Vacc QS2019-20(6MOS+)/PF 60 MCG/0.5 ML SYRINGE IM ONE (14:00)
== END 2019-04-20 14:15 | disposition home or self-care (01) ==
LOC: MW.ED 16:40 → MW.MS 20:19
PROVIDERS: ADMIT Internal Medicine; ATTEND Internal Medicine
DX: K57.20 Diverticulitis of large intestine with perforation and abscess without bleeding (principal); Z87.891 Personal history of nicotine dependence
CPT/HCPCS: 36415; 74177; 80048; 80053; 81003; 83690; 85025; 87804; 90471; 90686; 96361; 96365; 96375; 99285; A9270; J1885; J2270; J2543; J7030; J7050; Q9967; 96376; G0008; G0378

== ENCOUNTER 2019-06-12 08:31 | Day surgery (SDC) | payer OTHER ==
[~2019-06-12 08:31] MED LIST: 50% Dextrose in Water 50 ML Syringe IVPUSH PRN; Albuterol 0.083% 2.5 MG/3 ML Neb Soln NEB PRN; Atropine 0.1 MG/ML 10 ML Syringe IVPUSH PRN; EPINEPHrine 1:10,000 1 MG/10 ML Syringe IVPUSH PRN; Lactated Ringers 1,000 ML IV SCH; Naloxone 0.4 MG/ML Syringe IVPUSH PRN; Sodium Chloride 0.9% 10 ML SDV IV PRN; Sodium Chloride 0.9% 10 ML Syringe FLUSH PRN; Sodium Chloride 0.9% 2.5 ML Syringe FLUSH PRN; fentaNYL 100 MCG/2 ML SDV IVPUSH PRN
--- NOTE | 2019-06-12 09:20 | PCM.PREANE ---
Preanesthetic Assessment - Anesthesia/Transfusion/Family Hx Anesthesia History: Prior Anesthesia Without Reaction Family History of Anesthesia Reaction: No Transfusion History: No Prior Transfusion(s) Intubation History: Unknown - Review of Systems General: No Symptoms Pulmonary: No Symptoms Cardiovascular: No Symptoms Gastrointestinal: Other (h/o diverticulitis with complication) Other: Reports: None - Physical Assessment NPO Status Date: 06/12/19 NPO Status Time: 05:05 Vital Signs: Last Vital Signs Temp 36.0 C L 06/12/19 08:50 Pulse 66 06/12/19 08:50 Resp 18 06/12/19 08:50 BP 124/64 06/12/19 08:50 Pulse Ox 93 L 06/12/19 08:50 Height: 5 ft 4 in Weight: 82.1 kg ASA Class: 2 Mental Status: Alert & Oriented x3 Airway Class: Mallampati = 2 Dentition: Reports: Bridge (fixed upper front) Thyro-Mental Finger Breadths: 3 Mouth Opening Finger Breadths: 2 ROM/Head Extension: Full Lungs: Clear to Auscultation, Normal Respiratory Effort Cardiovascular: Regular Rate, Regular Rhythm - Allergies Allergies/Adverse Reactions: Allergies Allergy/AdvReac Type Severity Reaction Status Date / Time No Known Allergies Allergy Verified 06/09/19 07:48 - Blood Blood Available: No - Anesthesia Plan Pre-Op Medication Ordered: None - Acknowledgements Anesthesia Type Planned: MAC Pt an Appropriate Candidate for the Planned Anesthesia: Yes Alternatives and Risks of Anesthesia Discussed w Pt/Guardian: Yes Pt/Guardian Understands and Agrees with Anesthesia Plan: Yes PreAnesthesia Questionnaire HEENT History: Reports: None Cardiovascular History: Reports: None Respiratory History: Reports: None Gastrointestinal History: Reports: GERD, Other (See Below) Other Gastrointestinal History: diverticulitis with perisigmoid abscess treated with antibiotics Genitourinary History: Reports: Renal Calculus 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 , Musculoskeletal History: Reports: Arthritis, Fracture Other Musculoskeletal History: fx angele as a child Neurological History: Reports: None Psychiatric History: Reports: None Endocrine/Metabolic History: Reports: Obesity/BMI 30+ Hematologic History: Reports: None Immunologic History: Reports: None Oncologic (Cancer) History: Reports: None Dermatologic History: Reports: None - Infectious Disease History Infectious Disease History: Reports: Chicken Pox - Past Surgical History Head Surgeries/Procedures: Reports: None HEENT Surgical History: Reports: None Cardiovascular Surgical History: Reports: None Respiratory Surgical History: Reports: None GI Surgical History: Reports: Colonoscopy (about 10 years ago - Dr Arrieta) Female Surgical History: Reports: Hysterectomy, Lithotripsy/ESWL, Salpingo- Oophorectomy, Other (See Below) Other Female Surgeries/Procedures: laparotomy for ectopic , laparotomy for ovarian cystectomy Endocrine Surgical History: Reports: None Neurological Surgical History: Reports: None Musculoskeletal Surgical History: Reports: None Oncologic Surgical History: Reports: None Dermatological Surgical History: Reports: None - SUBSTANCE USE Smoking Status *Q: Former Smoker Tobacco Use Within Last Twelve Months: No - HOME MEDS Home Medications: Home Meds Omeprazole 40 mg PO DAILY 04/18/19 [History] FA/Lycopene/Lut/MV,Ca,Iron,Min [Centrum] 1 tab PO DAILY 06/09/19 [History] - CURRENT (IN HOUSE) MEDS Current Meds: Current Medications Albuterol (Proventil Neb Soln) 2.5 mg NEB ONETIME PRN PRN Reason: Wheezing Atropine Sulfate (Atropine 0.1 Mg/Ml) 1 mg IVPUSH ASDIRECTED PRN PRN Reason: Hypo-Perfusion Dextrose/Water (Dextrose 50% In Water) 50 ml IVPUSH ASDIRECTED PRN PRN Reason: Hypoglycemia Epinephrine HCl (Epinephrine 1:10,000) 1 mg IVPUSH ASDIRECTED PRN PRN Reason: ACLS Guidelines Fentanyl (Sublimaze) 50 mcg IVPUSH Q5M PRN PRN Reason: Pain Lactated Ringer's (Ringers, Lactated) 1,000 mls @ 125 mls/hr IV ASDIRECTED [facility] Last Admin: 06/12/19 09:00 Dose: 125 mls/hr Naloxone HCl (Narcan) 0.1 mg IVPUSH ASDIRECTED PRN PRN Reason: Respiratory Depression Sodium Chloride (Saline Flush) 10 ml FLUSH ASDIRECTED PRN PRN Reason: Keep Vein Open Sodium Chloride (Saline Flush) 2.5 ml FLUSH ASDIRECTED PRN PRN Reason: Keep Vein Open Sodium Chloride (Saline Flush) 10 ml FLUSH ASDIRECTED PRN PRN Reason: Keep Vein Open Sodium Chloride (Saline Flush) 2.5 ml FLUSH ASDIRECTED PRN PRN Reason: Keep Vein Open Sodium Chloride (Normal Saline) 10 ml IV ASDIRECTED PRN PRN Reason: IV Use Discontinued Medications Atropine Sulfate (Atropine 0.1 Mg/Ml) 0.5 mg IVPUSH ASDIRECTED PRN PRN Reason: Hypo-perfusion Stop: 06/12/19 07:50
--- NOTE | 2019-06-12 11:35 | PCM.OPNOTE ---
<Orlando Guzman M - Last Filed: 06/12/19 11:35> - General Post-Op/Procedure Note Date of Surgery/Procedure: 06/12/19 Operative Procedure(s): Colonoscopy Findings: Diverticulosis throughout the colon Pre Op Diagnosis: Diverticulitis Post-Op Diagnosis: Diverticulosis Anesthesia Technique: [facility] – [place], [place] Primary Surgeon: Saadia Mathew Complications: None Condition: Stable <Saadia Mathew - Last Filed: 06/12/19 11:53> - General Post-Op/Procedure Note Free Text/Narrative:: Intake & Output 06/11/19 06/12/19 06/12/19 22:59 06:59 14:59 Intake Total 900 Balance 900
--- NOTE | 2019-06-12 12:05 | PCM.POSTAN ---
POST ANESTHESIA ASSESSMENT - MENTAL STATUS Mental Status: Alert, Oriented - VITAL SIGNS Vital Signs: Last Vital Signs Temp 35.9 C L 06/12/19 11:54 Pulse 62 06/12/19 11:54 Resp 16 06/12/19 11:54 BP 122/62 06/12/19 11:54 Pulse Ox 97 06/12/19 11:54 - RESPIRATORY Respiratory Status: Respiratory Rate WNL, Airway Patent, O2 Saturation Stable - CARDIOVASCULAR CV Status: Pulse Rate WNL, Blood Pressure Stable - GASTROINTESTINAL GI Status: No Symptoms - PAIN Pain Score: 0 - POST OP HYDRATION Hydration Status: Adequate & Stable - OBSERVATIONS Free Text/Narrative:: No anesthesia problems.
--- NOTE | 2019-06-12 12:08 | PCM48HPAN ---
Post Anesthesia Note - EVALUATION WITHIN 48HRS OF ANESTHETIC Vital Signs in Normal Range: Yes Patient Participated in Evaluation: Yes Respiratory Function Stable: Yes Airway Patent: Yes Cardiovascular Function Stable: Yes Hydration Status Stable: Yes Pain Control Satisfactory: Yes Nausea and Vomiting Control Satisfactory: Yes Mental Status Recovered: Yes Vital Signs: Last Vital Signs Temp 35.9 C L 06/12/19 11:54 Pulse 62 06/12/19 11:54 Resp 16 06/12/19 11:54 BP 122/62 06/12/19 11:54 Pulse Ox 97 06/12/19 11:54 - COMMENTS/OBSERVATIONS Free Text/Narrative:: No anesthesia problems.
--- NOTE | 2019-06-12 13:45 | OR ---
SURGEON: SAADIA MATHEW MD DATE OF PROCEDURE: 06/12/2019 PREOPERATIVE DIAGNOSIS: Diverticulitis. POSTOPERATIVE DIAGNOSIS: Diverticulosis. PROCEDURE PERFORMED: Diagnostic colonoscopy. PRIMARY SURGEON: Saadia Mtahew MD. ANESTHESIA: MAC. INSTRUMENT USED: Olympus colonoscope. EXTENT OF EXAM: To the cecum. PREPARATION: Good. LIMITATIONS: None. INDICATIONS FOR EXAMINATION: The patient is a 58-year-old female who was recently diagnosed with her first bout of diverticulitis. The decision was made to proceed with a diagnostic colonoscopy after the inflammation had subsided. The patient and I discussed the procedure; expected perioperative course; and the risks including bleeding, infection, or damage to surrounding structures including perforation. She verbalized understanding and wishes to proceed. PROCEDURE IN DETAIL: The patient was brought into the endoscopy suite and placed in the left lateral decubitus position. A time-out was completed verifying the patient's name, age, date of , allergies, and procedure to be performed. Monitored anesthesia care was induced and continuous oxygen was provided via nasal cannula throughout the procedure. After adequate sedation was achieved, a digital rectal exam was performed. This exam was within normal limits. A well-lubricated colonoscope was inserted in the rectum and advanced under direct visualization to the level of the cecum. The cecum was identified by both visual and anatomic landmarks. A photograph was taken of the cecal cap; however I was unable to retroflex the scope within the cecum due to looping of the scope more proximally. The scope was then fully withdrawn while examining the color, texture, anatomy, and integrity of mucosa from the cecum to the anal canal. The patient was found to have scattered diverticulosis throughout the colon; however, she had the majority of her diverticula throughout the sigmoid colon. No polyps or abnormalities were otherwise seen. The scope was then brought into the rectum and retroflexed to allow visualization of the anal canal opening. This appeared normal and a photograph was taken. The scope was then straightened and fully withdrawn. The cecum to anus time was 6 minutes. The patient tolerated the procedure well and was transferred to the PACU in stable condition. ENDOSCOPIC DIAGNOSIS: Diverticulosis. RECOMMENDATIONS: Follow up in clinic in 2 weeks. MARIBEL / ANTHONY /[id number]
== END 2019-06-12 12:10 | disposition home or self-care (01) ==
LOC: MW.SDS 08:31
PROVIDERS: ATTEND Surgery
DX: K57.30 Diverticulosis of large intestine without perforation or abscess without bleeding (principal); K21.9 Gastro-esophageal reflux disease without esophagitis; M19.90 Unspecified osteoarthritis, unspecified site; E66.9 Obesity, unspecified; Z68.31 Body mass index [BMI] 31.0-31.9, adult; Z87.891 Personal history of nicotine dependence; Z79.899 Other long term (current) drug therapy
CPT/HCPCS: 45378; J7120

== ENCOUNTER 2020-10-03 16:35 | Emergency (ER) | payer OTHER ==
--- NOTE | 2020-10-03 17:01 | EDM.PDOC ---
ED HPI GENERAL MEDICAL PROBLEM - General Chief Complaint: General Stated Complaint: BACK PAIN Time Seen by Provider: 10/03/20 16:36 Source of Information: Reports: Patient History Limitations: Reports: No Limitations - History of Present Illness INITIAL COMMENTS - FREE TEXT/NARRATIVE: 59-year-old female presents for nausea, vomiting, diarrhea, bilateral middle back pain for 4 days. Patient notes that 4 days ago she had nausea with one episode of vomiting as well as a few episodes of diarrhea. She began to feel better the next couple of days but yesterday again developed diarrhea, body aches, middle back pain. She no longer has nausea and has not had any repeat episodes of vomiting. She denies any abdominal pain. Denies sore throat, cough, shortness of breath, chest pain. Still has her sense of taste and smell. Denies fevers. middle bakc Pain Score (Numeric/FACES): 7 - Related Data Allergies Allergy/AdvReac Type Severity Reaction Status Date / Time No Known Allergies Allergy Verified 10/03/20 16:55 Home Meds: Home Meds Omeprazole 40 mg PO DAILY 04/18/19 [History] FA/Lycopene/Lut/MV,Ca,Iron,Min [Centrum] 1 tab PO DAILY 06/09/19 [History] Past Medical History HEENT History: Reports: None Cardiovascular History: Reports: None Respiratory History: Reports: None Gastrointestinal History: Reports: GERD, Other (See Below) Other Gastrointestinal History: diverticulitis with perisigmoid abscess treated with antibiotics Genitourinary History: Reports: Renal Calculus 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 , Musculoskeletal History: Reports: Arthritis, Fracture Other Musculoskeletal History: fx collarbone as a child Neurological History: Reports: None Psychiatric History: Reports: None Endocrine/Metabolic History: Reports: Obesity/BMI 30+ Hematologic History: Reports: None Immunologic History: Reports: None Oncologic (Cancer) History: Reports: None Dermatologic History: Reports: None - Infectious Disease History Infectious Disease History: Reports: Chicken Pox - Past Surgical History Head Surgeries/Procedures: Reports: None HEENT Surgical History: Reports: None Cardiovascular Surgical History: Reports: None Respiratory Surgical History: Reports: None GI Surgical History: Reports: Colonoscopy Female Surgical History: Reports: Hysterectomy, Lithotripsy/ESWL, Salpingo- Oophorectomy, Other (See Below) Other Female Surgeries/Procedures: laparotomy for ectopic , laparot javier for ovarian cystectomy Endocrine Surgical History: Reports: None Neurological Surgical History: Reports: None Musculoskeletal Surgical History: Reports: None Oncologic Surgical History: Reports: None Dermatological Surgical History: Reports: None Social & Family History - Family History Family Medical History: No Pertinent Family History - Caffeine Use Caffeine Use: Reports: None - Recreational Drug Use Recreational Drug Use: No ED ROS GENERAL - Review of Systems Review Of Systems: Comprehensive ROS is negative, except as noted in HPI. ED EXAM, GENERAL - Physical Exam Exam: See Below Exam Limited By: No Limitations General Appearance: Alert, WD/WN, No Apparent Distress Throat/Mouth: Normal Voice, No Airway Compromise Head: Atraumatic, Normocephalic Neck: Normal Inspection Respiratory/Chest: No Respiratory Distress, Lungs Clear, Normal Breath Sounds, No Accessory Muscle Use Cardiovascular: Normal Peripheral Pulses, Regular Rate, Rhythm GI/Abdominal: Soft, Non-Tender Back Exam: No: CVA Tenderness (L), CVA Tenderness (R) Extremities: Normal Inspection Neurological: Alert, Normal Cognition Psychiatric: Normal Affect, Normal Mood Skin Exam: Warm, Dry, Intact, Normal Color Course - Vital Signs Last Recorded V/S: Last Vital Signs Temp 98.7 F 10/03/20 16:52 Pulse 72 10/03/20 17:36 Resp 16 10/03/20 17:36 BP 112/60 10/03/20 17:36 Pulse Ox 90 L 10/03/20 17:36 - Orders/Labs/Meds Orders: Active Orders 24 hr Category Date Time Status Sodium Chloride 0.9% [Normal Saline] 1,000 ml Med 10/03/20 17:06 Active IV .Bolus Sodium Chloride 0.9% [Saline Flush] Med 10/03/20 17:06 Active 10 ml FLUSH ASDIRECTED PRN Sodium Chloride 0.9% [Saline Flush] Med 10/03/20 17:06 Active 2.5 ml FLUSH ASDIRECTED PRN Saline Lock Insert [OM.PC] Stat Oth 10/03/20 17:06 Ordered Medication Orders Sodium Chloride (Normal Saline) 1,000 mls @ 999 mls/hr IV .Bolus ONE Stop: 10/03/20 18:06 Last Admin: 10/03/20 17:20 Dose: 999 mls/hr Documented by: CHRIS Sodium Chloride (Sodium Chloride 0.9% 10 Ml Syringe) 10 ml FLUSH ASDIRECTED PRN PRN Reason: Keep Vein Open Last Admin: 10/03/20 17:20 Dose: 10 ml Documented by: CHRIS Sodium Chloride (Sodium Chloride 0.9% 2.5 Ml Syringe) 2.5 ml FLUSH ASDIRECTED PRN PRN Reason: Keep Vein Open Last Admin: 10/03/20 17:20 Dose: 2.5 ml Documented by: CHRIS Labs: Laboratory Tests 10/03/20 10/03/20 10/03/20 Range/Units 17:04 17:04 17:15 WBC 3.73 L (4.0-11.0) K/uL RBC 4.88 (4.30-5.90) M/uL Hgb 15.5 (12.0-16.0) g/dL Hct 44.8 (36.0-46.0) % MCV 91.8 (80.0-98.0) fL MCH 31.8 (27.0-32.0) pg MCHC 34.6 (31.0-37.0) g/dL RDW Std Deviation 47.7 (28.0-62.0) fl RDW Coeff of Herbert 14 (11.0-15.0) % Plt Count 256 (150-400) K/uL MPV 10.60 (7.40-12.00) fL Neut % (Auto) 49.9 (48.0-80.0) % Lymph % (Auto) 33.0 (16.0-40.0) % Sevier % (Auto) 15.8 H (0.0-15.0) % Eos % (Auto) 0.8 (0.0-7.0) % Baso % (Auto) 0.5 (0.0-1.5) % Neut # (Auto) 1.9 (1.4-5.7) K/uL Lymph # (Auto) 1.2 (0.6-2.4) K/uL Sevier # (Auto) 0.6 (0.0-0.8) K/uL Eos # (Auto) 0.0 (0.0-0.7) K/uL Baso # (Auto) 0.0 (0.0-0.1) K/uL Nucleated RBC % 0.0 /100WBC Nucleated RBCs # 0 K/uL Sodium 137 (136-145) mmol/L Potassium 3.2 L (3.5-5.1) mmol/L Chloride 103 (98-107) mmol/L Carbon Dioxide 24.6 (21.0-32.0) mmol/L BUN 18 (7.0-18.0) mg/dL Creatinine 0.7 (0.6-1.0) mg/dL Est Cr Clr Drug Dosing 73.35 mL/min Estimated GFR (MDRD) > 60.0 ml/min Glucose 96 (74-106) mg/dL Calcium 8.5 (8.5-10.1) mg/dL Magnesium 2.0 (1.8-2.4) mg/dL Total Bilirubin 0.3 (0.2-1.0) mg/dL AST 27 (15-37) IU/L ALT 45 (14-63) IU/L Alkaline Phosphatase 115 (46-116) U/L Total Protein 7.9 (6.4-8.2) g/dL Albumin 4.0 (3.4-5.0) g/dL Globulin 3.9 (2.6-4.0) g/dL Albumin/Globulin Ratio 1.0 (0.9-1.6) Lipase 66 L (73-393) U/L Urine Color YELLOW Urine Appearance HAZY Urine pH 5.0 (5.0-8.0) Ur Specific [place] >= 1.030 (1.001-1.035) Urine Protein NEGATIVE (NEGATIVE) mg/dL Urine Glucose (UA) NEGATIVE (NEGATIVE) mg/dL Urine Ketones NEGATIVE (NEGATIVE) mg/dL Urine Occult Blood TRACE-INTACT H (NEGATIVE) Urine Nitrite NEGATIVE (NEGATIVE) Urine Bilirubin NEGATIVE (NEGATIVE) Urine Urobilinogen 0.2 (<2.0) EU/dL Ur Leukocyte Esterase NEGATIVE (NEGATIVE) Urine RBC 0-1 (0-2/HPF) Urine WBC 0-1 (0-5/HPF) Ur Epithelial Cells OCCASIONAL (NONE-FEW) Urine Bacteria FEW (NEGATIVE) Meds: Medications Generic Name Dose Route Start Last Admin Trade Name Freq PRN Reason Stop Dose Admin Sodium Chloride 1,000 mls @ 999 mls/hr 10/03/20 17:06 10/03/20 17:20 Normal Saline IV 10/03/20 18:06 999 mls/hr .Bolus ONE Administration Sodium Chloride 10 ml 10/03/20 17:06 10/03/20 17:20 Sodium Chloride 0.9% 10 Ml Syringe FLUSH 10 ml ASDIRECTED PRN Administration Keep Vein Open Sodium Chloride 2.5 ml 10/03/20 17:06 10/03/20 17:20 Sodium Chloride 0.9% 2.5 Ml Syringe FLUSH 2.5 ml ASDIRECTED PRN Administration Keep Vein Open Discontinued Medications Generic Name Dose Route Start Last Admin Trade Name Efraínq PRN Reason Stop Dose Admin Ketorolac Tromethamine 15 mg 10/03/20 17:07 10/03/20 17:19 Ketorolac 15 Mg/Ml Sdv IVPUSH 10/03/20 17:08 15 mg ONETIME ONE Administration Ondansetron HCl 4 mg 10/03/20 17:06 10/03/20 17:20 Ondansetron 4 Mg/2 Ml Sdv IVPUSH 10/03/20 17:07 4 mg ONETIME ONE Administration Potassium Chloride 40 meq 10/03/20 17:45 Potassium Chloride 10% 20 Meq/15 Ml Soln 30 Ml Ud Cup PO 10/03/20 17:46 ONETIME ONE - Re-Assessments/Exams Free Text/Narrative Re-Assessment/Exam: 10/03/20 17:10 Patient is well-appearing with normal vitals. Will get basic labs. Will treat symptomatically with IV fluid bolus, Zofran, Toradol. 10/03/20 17:47 Labs are grossly unremarkable. Will replete potassium. Recommend tylenol/motrin for body aches. Patient is feeling much better after IVFB and toradol/zofran. Departure - Departure Time of Disposition: 17:48 Disposition: Home, Self-Care 01 Condition: Good Clinical Impression: Diarrhea Qualifiers: Diarrhea type: unspecified type Qualified Code(s): R19.7 - Diarrhea, unspecified - Discharge Information Instructions: Diarrhea, Adult Referrals: Cristobal Becerril MD [Primary Care Provider] - Forms: ED Department Discharge Additional Instructions: The following information is given to patients seen in the emergency department who are being discharged to home. This information is to outline your options for follow-up care. We provide all patients seen in our emergency department with a follow-up referral. The need for follow-up, as well as the timing and circumstances, are variable depending upon the specifics of your emergency department visit. If you don't have a primary care physician on staff, we will provide you with a referral. We always advise you to contact your personal physician following an emergency department visit to inform them of the circumstance of the visit and for follow-up with them and/or the need for any referrals to a consulting specialist. The emergency department will also refer you to a specialist when appropriate. This referral assures that you have the opportunity for follow-up care with a specialist. All of these measure are taken in an effort to provide you with optimal care, which includes your follow-up. Under all circumstances we always encourage you to contact your private physician who remains a resource for coordinating your care. When calling for follow-up care, please make the office aware that this follow-up is from your recent emergency room visit. If for any reason you are refused follow-up, please contact the [facility] Emergency Department at and asked to speak to the emergency department charge nurse. Please follow up with your primary care physician. If you do not have a primary care physician, see below: [facility] [address] [place] [id number] [facility] [address] [place] [address] [phone] [facility] [address] [place] [id number] Sepsis Event Note (ED) - Evaluation Sepsis Screening Result: No Definite Risk - Focused Exam Vital Signs: Vital Signs Temp Pulse Resp BP Pulse Ox 10/03/20 17:36 72 16 112/60 90 L 10/03/20 16:52 98.7 F 75 16 134/105 H 94 L - My Orders Last 24 Hours: My Active Orders 10/03/20 17:06 Sodium Chloride 0.9% [Normal Saline] 1,000 ml IV .Bolus Sodium Chloride 0.9% [Saline Flush] 10 ml FLUSH ASDIRECTED PRN Sodium Chloride 0.9% [Saline Flush] 2.5 ml FLUSH ASDIRECTED PRN Saline Lock Insert [OM.PC] Stat - Assessment/Plan Last 24 Hours: My Active Orders 10/03/20 17:06 Sodium Chloride 0.9% [Normal Saline] 1,000 ml IV .Bolus Sodium Chloride 0.9% [Saline Flush] 10 ml FLUSH ASDIRECTED PRN Sodium Chloride 0.9% [Saline Flush] 2.5 ml FLUSH ASDIRECTED PRN Saline Lock Insert [OM.PC] Stat
[2020-10-03] MEDS ORDERED: Sodium Chloride 0.9% 10 ML Syringe FLUSH PRN (17:06)
[2020-10-03] MEDS ORDERED: Sodium Chloride 0.9% 2.5 ML Syringe FLUSH PRN (17:06)
[2020-10-03] MEDS ORDERED: Sodium Chloride 0.9% 1,000 ML IV ONE (17:06)
[2020-10-03] MEDS ORDERED: Ondansetron 4 MG/2 ML SDV IVPUSH ONE (17:06)
[2020-10-03] MEDS ORDERED: Ketorolac 15 MG/ML SDV IVPUSH ONE (17:07)
[2020-10-03 17:30] LABS: BLOOD UREA NITROGEN,BUN 18 mg/dL (7.0-18.0); CARBON DIOXIDE,CO2 24.6 mmol/L (21.0-32.0); CHLORIDE,CL 103 mmol/L (98-107); GLUCOSE RANDOM 96 mg/dL (74-106); POTASSIUM,K 3.2 mmol/L (3.5-5.1); SODIUM,NA 137 mmol/L (136-145)
[2020-10-03 17:31] LABS: LIPASE 66 U/L (73-393)
[2020-10-03] MEDS ORDERED: Potassium Chloride 10% 20 MEQ/15 ML Soln 30 ML UD Cup PO ONE (17:45)
== END 2020-10-03 18:26 | disposition home or self-care (01) ==
LOC: MW.ED 16:35
DX: R19.7 Diarrhea, unspecified (principal); E66.9 Obesity, unspecified; Z68.32 Body mass index [BMI] 32.0-32.9, adult
CPT/HCPCS: 36415; 80053; 81001; 83690; 83735; 85025; 96374; 96375; 99284; A9270; J1885; J2405; J7030; 99283

== ENCOUNTER 2022-02-05 18:46 | Emergency (ER) | payer OTHER ==
[2022-02-05] MEDS ORDERED: Ondansetron 4 MG/2 ML SDV IVPUSH ONE (19:34)
[2022-02-05] MEDS ORDERED: Sodium Chloride 0.9% 10 ML Syringe FLUSH PRN (19:34)
[2022-02-05] MEDS ORDERED: fentaNYL 50 MCG/ML SDV IVPUSH ONE (19:34)
[2022-02-05] MEDS ORDERED: Sodium Chloride 0.9% 2.5 ML Syringe FLUSH PRN (19:34)
[2022-02-05] MEDS ORDERED: Ketorolac 30 MG/ML SDV IVPUSH ONE (19:34)
[2022-02-05] MEDS ORDERED: Sodium Chloride 0.9% 1,000 ML IV ONE (19:34)
[2022-02-05 20:14] LABS: CARBON DIOXIDE,CO2 26.4 mmol/L (21.0-32.0); POTASSIUM,K 3.9 mmol/L (3.5-5.1)
[2022-02-05] MEDS ORDERED: Iopamidol 755 Mg/ML 100 ML Bottle IVPUSH ONE (21:30)
[2022-02-05] MEDS ORDERED: metroNIDAZOLE 250 MG Tab PO ONE (22:02)
[2022-02-05] MEDS ORDERED: Ciprofloxacin 500 MG Tab PO ONE (22:02)
[2022-02-05] MEDS ORDERED: cefTRIAXone 1 GM in Sodium Chloride 0.9% 50 ML IV ONE (22:03)
== END 2022-02-05 22:50 | disposition home or self-care (01) ==
LOC: MW.ED 18:46
DX: K57.32 Diverticulitis of large intestine without perforation or abscess without bleeding (principal); K57.30 Diverticulosis of large intestine without perforation or abscess without bleeding; K21.9 Gastro-esophageal reflux disease without esophagitis; M19.90 Unspecified osteoarthritis, unspecified site; E66.9 Obesity, unspecified; Z68.33 Body mass index [BMI] 33.0-33.9, adult; Z79.899 Other long term (current) drug therapy
CPT/HCPCS: 36415; 74177; 80053; 81001; 83690; 85025; 87086; 96361; 96365; 96375; 99284; A9270; J0696; J1885; J2405; J3010; J3490; J7030; Q9967

== ENCOUNTER 2024-08-14 11:08 | Day surgery (SDC) | payer OTHER ==
[~2024-08-14 11:08] MED LIST changes: -50% Dextrose in Water 50 ML Syringe IVPUSH PRN; -Albuterol 0.083% 2.5 MG/3 ML Neb Soln NEB PRN; -Atropine 0.1 MG/ML 10 ML Syringe IVPUSH PRN; -EPINEPHrine 1:10,000 1 MG/10 ML Syringe IVPUSH PRN; -Lactated Ringers 1,000 ML IV SCH; -Naloxone 0.4 MG/ML Syringe IVPUSH PRN; -Sodium Chloride 0.9% 10 ML SDV IV PRN; +Sodium Chloride 0.9% 20 ML SDV IV PRN; -fentaNYL 100 MCG/2 ML SDV IVPUSH PRN
[2024-08-14] MEDS: Lactated Ringers 1,000 ML IV SCH (11:37)
[2024-08-14] MEDS ORDERED: propofoL 500 MG/50 ML 50 ML ONE (12:07)
[2024-08-14] MEDS ORDERED: Lidocaine 2% 5 ML SDV ONE (12:08)
== END 2024-08-14 14:03 | disposition home or self-care (01) ==
LOC: MW.SDS 11:08
PROVIDERS: ATTEND Surgery
DX: K21.9 Gastro-esophageal reflux disease without esophagitis (principal); K57.30 Diverticulosis of large intestine without perforation or abscess without bleeding; K44.9 Diaphragmatic hernia without obstruction or gangrene; E66.9 Obesity, unspecified; Z80.0 Family history of malignant neoplasm of digestive organs; Z68.33 Body mass index [BMI] 33.0-33.9, adult; Z87.891 Personal history of nicotine dependence; Z79.899 Other long term (current) drug therapy
CPT/HCPCS: 43239; 45330; J2003; J2704; J7120; 00813

== ENCOUNTER 2024-09-25 10:21 | Day surgery (SDC) | payer OTHER ==
[2024-09-25] MEDS ORDERED: propofoL 500 MG/50 ML 50 ML ONE (11:28)
[2024-09-25] MEDS: Lactated Ringers 1,000 ML IV SCH (11:57)
[2024-09-25] MEDS ORDERED: Ketorolac 30 MG/ML SDV ONE (13:48)
[2024-09-25] MEDS ORDERED: Ondansetron 4 MG/2 ML SDV ONE (14:09)
[2024-09-25] MEDS: Metoclopramide 10 MG/2 ML SDV IM ONE (14:37)
[2024-09-25] MEDS: Metoclopramide 10 MG/2 ML SDV IVPUSH ONE (15:00)
== END 2024-09-25 15:04 | disposition home or self-care (01) ==
LOC: MW.SDS 10:21
PROVIDERS: ATTEND Surgery
DX: K57.30 Diverticulosis of large intestine without perforation or abscess without bleeding (principal); K59.09 Other constipation; K21.9 Gastro-esophageal reflux disease without esophagitis; Z87.891 Personal history of nicotine dependence; Z79.899 Other long term (current) drug therapy
CPT/HCPCS: 45378; J1885; J2405; J2704; J2765; J7120; 00811